=== PATIENT | male | born 1995 | race Caucasian/White ===

== ENCOUNTER 2018-06-13 20:36 | Emergency (ER) | payer BC ==
[~2018-06-13] VITALS: Ht 177.8 cm; Wt 78.5 kg
[~2018-06-13 20:36] MED LIST: ACETAMINOPHEN-1 EAC1 PO; NAPROSYN500 MG PO; NOHOMEMEDICATIONS; ZOFRAN4 MG PO
[2018-06-13 20:42] VITALS: BP 135/70
[2018-06-13] MEDS ORDERED: XANAX 0.5 MG0.5 MG (20:46)
[2018-06-13] MEDS ORDERED: BRINTELLIX20 MG (20:46)
[2018-06-13] MEDS ORDERED: AMBIEN 5 MG TABL5 M1 (20:47)
[2018-06-13] MEDS ORDERED: NORCO 5-325 TA1 EACH PO (20:52)
[2018-06-13] MEDS ORDERED: AMOXICILLIN 50500 MG PO (20:52)
== END 2018-06-13 21:03 | disposition home or self-care (01) ==
LOC: M.ERS 20:36
DX: K08.89 Other specified disorders of teeth and supporting structures (principal); J45.909 Unspecified asthma, uncomplicated